=== PATIENT | female | born 1975 | race Caucasian/White ===

== ENCOUNTER → 2017-03-29 | Outpatient (REF) | payer OTHER | LOC: M WUC 19:09 | PROVIDERS: ATTEND Physician Assistant | DX: N76.4 Abscess of vulva (principal) ==

== ENCOUNTER 2018-07-19 12:41 | Outpatient (RCR) | payer OTHER ==
[2018-07-19] MEDS ORDERED: METO1TAB32 PO (12:55)
[2018-07-19] MEDS ORDERED: ELIQ5TAB PO (12:55)
[2018-07-19] MEDS ORDERED: DIGO0.259 PO (12:55)
[2018-07-19] MEDS ORDERED: ENTR1TAB PO (12:55)
[2018-07-19] MEDS ORDERED: METO1TAB33 PO (12:55)
[2018-07-19] MEDS ORDERED: TORS10TA3 PO (12:55)
[2018-07-19] MEDS ORDERED: SPIR-10 PO (12:55)
[2018-07-19] MEDS ORDERED: MAGN64TASA PO (12:55)
--- NOTE | 2018-07-19 15:25 | CARECAPL ---
Exercise Prescription Duration (Minutes) minutes total exercise a day. work intervals in minutes. rest intervals in minutes. Functional Capacity Goal Sustained Metabolic Equivalent of a task (MET) goal of for minutes. Progression (METS) Increase by: METS every: sessions Medications Scheduled Apixaban Base (Eliquis), 5 MG PO BID, (Reported) Digoxin (Digox), 250 MCG PO DAILY, (Reported) Magnesium Chloride (Mag64), 2 TAB PO BID, (Reported) Metoprolol Succinate (Metoprolol Succinate ER), 25 MG PO DAILY, (Reported) Metoprolol Succinate (Metoprolol Succinate ER), 100 MG PO DAILY, (Reported) Sacubitril/Valsartan (Entresto 24-26 mg), 1 TAB PO BID, (Reported) Spironolactone (Spironolactone), 25 MG PO DAILY, (Reported) Torsemide (Torsemide), 10 MG PO DAILY, (Reported) Target Goals Individual exercise Rx (1) BP 140/90 or 130/80 if DM or CKD (1) Aerobic active 30+min 5 days per week (1) Nutrition Date: Jul 19, 2018 Assessment: Initial Assessment Diabetes Diabetes: No Weight Management Weight (lbs): 228.2 Height (inches): 64 Waist Circumference (Inches): 50 BMI: 36.8 Special Diet: low salt, mediteranean diet, low-fat Alcohol: special Alcohol Amount: 1-2 Diet Access Tool: Rate your plate Score: 40 Intervention Direct Sales Professional Consult: Yes Nurse/patient discussion: Yes Diet Class: Yes Referral to weight mangement p: Yes Education Eating Healthy Target goal LDL-C<100 if triglycerides are >200 Non-HDL-C should be <130 (1) LDL-C<70 for high risk patients (4) HbA1c<7% (1) BMI<25 Waist cir<40in M/<35in F (1) Education Date: Jul 19, 2018 Assessment: Initial Assessment Knowledge Test Score: 8 Family Support: Yes Tobacco use: Yes Quit: <6 months Tobacco Use Date quit: Feb 27, 2018 Cigarettes smoked per day: 4 Intervention Referral to smoking cessation: Yes Individual education and couns: Yes Education class schedule given: Yes Attended education classes: Yes Education: tobacco triggers, CAD, Risk factors, med compliance, cardiac A&P, Angina S/S, Sexuality Target Goals Complete cessation of tobacco use (1). Psychosocial Date: Jul 19, 2018 Assessment: Initial Assessment Psych Test (Initial/Discharge) Tool Used: CESD Score: 10 Intervention Physician Consult: No Physician Referral: No Stress Management Class: Yes Uses Stress Management Skills: Yes Education Education: Coping Techniques, Relaxation Techniques Target Goal Assess presence or absence of depression using a valid screening tool (1). Maximize coping skills (2). Positive support system (2). Patient/Program Goal Preventative Medication: Yes Clopidogrel, Yes Beta blockade Fall Risk Assess: No Provider Assessment Session Number: 1 Provider Assessment: Proceed with rehab Hue Dhillon RN Jul 19, 2018 15:25
== END 2018-07-29 ==
LOC: M CR 12:41
PROVIDERS: ATTEND Internal Medicine Cardiovascular Disease
DX: I21.4 Non-ST elevation (NSTEMI) myocardial infarction (principal)

== ENCOUNTER 2018-08-09 14:20 | Outpatient (RCR) | payer OTHER ==
[~2018-08-09 14:20] MED LIST: DIGO0.259 PO; ELIQ5TAB PO; ENTR1TAB PO; MAGN64TASA PO; METO1TAB32 PO; METO1TAB33 PO; SPIR-10 PO; TORS10TA3 PO
--- NOTE | 2018-08-21 09:51 | CARECAPL ---
Assessment Account #s: Re-Assessment I General Diagnoses: NSTEMI, CHF Date of event: Jul 03, 2018 Physician: Yanick Licea Date Entered Program: Jul 19, 2018 Risk strat for cardiac event: Moderate Exercise Date: Aug 21, 2018 Assessment: Re-Assessment I Exercise Prescription Plan TO EDUCATE AND BUILD ENDURANCE THROUGH MONITORED EXERCISE Modalities initiated: Treadmill (METS=2.15/RPE=2), Arm Aerometer (METS=2.8/RPE3), Recumbent Bike (METS=3.5/RPE=3) Frequency: 3 Duration (Minutes) 30-60 minutes total exercise a day. 10-15 work intervals in minutes. 5 MIN PRN rest intervals in minutes. Functional Capacity Goal Sustained Metabolic Equivalent of a task (MET) goal of 4.5-5.0 for 15-20 minutes. Intensity: 3-Moderate Progression (METS) Increase by: 0.5 METS every: 5 sessions TOLERATED Angina with ex: No Target Heart Rate +35-40 BASED ON BETA DORIS THERAPY Resistance Training: Yes Weight (pounds): 1 Reps: 12-15 Hypertension: Yes Hypertension controlled with: Medication Resting 110/80 Peak Exercise BP 160/96 Medications Scheduled Apixaban Base (Eliquis), 5 MG PO BID, (Reported) Digoxin (Digox), 250 MCG PO DAILY, (Reported) Magnesium Chloride (Mag64), 2 TAB PO BID, (Reported) Metoprolol Succinate (Metoprolol Succinate ER), 25 MG PO DAILY, (Reported) Metoprolol Succinate (Metoprolol Succinate ER), 100 MG PO DAILY, (Reported) Sacubitril/Valsartan (Entresto 24-26 mg), 1 TAB PO BID, (Reported) Spironolactone (Spironolactone), 25 MG PO DAILY, (Reported) Torsemide (Torsemide), 10 MG PO DAILY, (Reported) Current BP 104/60 Med Change: No Intervention Resistance Training: Yes Education: Self pulse, Ex safety, S/S to report, Low NA diet, BP medication, RPE Scale, Equipment orientation, warm up/cool down, Understand BP, Physical A ctive Target Goals Individual exercise Rx (1) BP 140/90 or 130/80 if DM or CKD (1) Aerobic active 30+min 5 days per week (1) Nutrition Date: Aug 21, 2018 Assessment: Re-Assessment I Med Change: No Diabetes Diabetes: No Monitor Blood Sugar at home: No Medication Change: No Blood sugar in range: No Weight Management Weight (lbs): 228 Special Diet: low salt, mediteranean diet, low-fat Alcohol: special Alcohol Amount: 1-2 Current Weight (pounds): 228 Intervention Opal Miner Consult: No Nurse/patient discussion: Yes Diet Class: Yes Referral to Diabetes education: No Referral to lipid clinic: No Referral to weight mangement p: No Education Eating Healthy Target goal LDL-C<100 if triglycerides are >200 Non-HDL-C should be <130 (1) LDL-C<70 for high risk patients (4) HbA1c<7% (1) BMI<25 Waist cir<40in M/<35in F (1) Education Date: Aug 21, 2018 Assessment: Re-Assessment I Family Support: Yes Tobacco use: No (QUIT February) Quit: <6 months Tobacco Use Date quit: Feb 27, 2018 Smokeless tobacco: No Intervention Referral to smoking cessation: No Individual education and couns: No Tobacco Adjunct: No Education class schedule given: No Attended education classes: No Education: tobacco triggers, CAD, Risk factors, med compliance, cardiac A&P, Angina S/S, Sexuality Target Goals Complete cessation of tobacco use (1). Psychosocial Date: Aug 21, 2018 Assessment: Re-Assessment I Intervention Physician Consult: No Physician Referral: No Med Change: No Stress Management Class: No Uses Stress Management Skills: Yes Education Education: Coping Techniques, S/S depression, Relaxation Techniques Target Goal Assess presence or absence of depression using a valid screening tool (1). Maximize coping skills (2). Positive support system (2). Patient/Program Goal Preventative Medication: Yes Beta blockade Fall Risk Assess: Yes (NOT A FALL RISK) Provider Assessment Session Number: 3 Arnold Pineda RN Aug 21, 2018 09:51
== END 2018-08-29 ==
LOC: M CR 14:20
PROVIDERS: ATTEND Internal Medicine Cardiovascular Disease
DX: I21.4 Non-ST elevation (NSTEMI) myocardial infarction (principal)

== ENCOUNTER 2018-09-12 11:10 | Outpatient (RCR) | payer OTHER ==
--- NOTE | 2018-09-16 08:46 | CARECAPL ---
Assessment Account #s: Re-Assessment II General Diagnoses: NSTEMI, CHF Date of event: Jul 03, 2018 Physician: Yanick Licea strat for cardiac event: Moderate Exercise Date: Sep 12, 2018 Assessment: Re-Assessment II Exercise Prescription Modalities initiated: Treadmill (mets 2.76 RPE 2), Nustep (mets 2.8 RPE 4), Dumbells (2lbs RPE 3), Recumbent Bike (mets 3.6 RPE 3) Frequency: 2 Duration (Minutes) minutes total exercise a day. work intervals in minutes. rest intervals in minutes. Functional Capacity Goal Sustained Metabolic Equivalent of a task (MET) goal of for minutes. Intensity: 3-Moderate Progression (METS) Increase by: METS every: sessions Weight (pounds): 2 Reps: 8-12 Medications Scheduled Apixaban Base (Eliquis), 5 MG PO BID, (Reported) Digoxin (Digox), 250 MCG PO DAILY, (Reported) Magnesium Chloride (Mag64), 2 TAB PO BID, (Reported) Metoprolol Succinate (Metoprolol Succinate ER), 25 MG PO DAILY, (Reported) Metoprolol Succinate (Metoprolol Succinate ER), 100 MG PO DAILY, (Reported) Sacubitril/Valsartan (Entresto 24-26 mg), 1 TAB PO BID, (Reported) Spironolactone (Spironolactone), 25 MG PO DAILY, (Reported) Torsemide (Torsemide), 10 MG PO DAILY, (Reported) Current BP 110/78 Med Change: No Target Goals Individual exercise Rx (1) BP 140/90 or 130/80 if DM or CKD (1) Aerobic active 30+min 5 days per week (1) Nutrition Date: Sep 16, 2018 Assessment: Re-Assessment II Med Change: No Medication Change: No Blood sugar in range: No Current Weight (pounds): 227 Intervention Nurse/patient discussion: Yes Target goal LDL-C<100 if triglycerides are >200 Non-HDL-C should be <130 (1) LDL-C<70 for high risk patients (4) HbA1c<7% (1) BMI<25 Waist cir<40in M/<35in F (1) Education Date: Sep 16, 2018 Assessment: Re-Assessment II Target Goals Complete cessation of tobacco use (1). Psychosocial Date: Sep 16, 2018 Assessment: Re-Assessment II Med Change: No Stress Management Class: Yes Uses Stress Management Skills: Yes Education Education: Coping Techniques, S/S depression, Relaxation Techniques Target Goal Assess presence or absence of depression using a valid screening tool (1). Maximize coping skills (2). Positive support system (2). Patient/Program Goal Preventative Medication: Yes Beta blockade, Yes Other (entresto) Fall Risk Assess: No Provider Assessment Session Number: 5 Provider Assessment: Proceed with rehab Swetha Johnson RN Sep 16, 2018 08:46
--- NOTE | 2018-09-18 13:21 | CARECAPL ---
General Diagnoses: NSTEMI, CHF Date of event: Jul 03, 2018 Physician: Yanick Licea Date Entered Program: Sep 12, 2018 Risk strat for cardiac event: High Exercise Prescription Duration (Minutes) minutes total exercise a day. work intervals in minutes. rest intervals in minutes. Functional Capacity Goal Sustained Metabolic Equivalent of a task (MET) goal of for minutes. Progression (METS) Increase by: METS every: sessions Medications Scheduled Apixaban Base (Eliquis), 5 MG PO BID, (Reported) Digoxin (Digox), 250 MCG PO DAILY, (Reported) Magnesium Chloride (Mag64), 2 TAB PO BID, (Reported) Metoprolol Succinate (Metoprolol Succinate ER), 25 MG PO DAILY, (Reported) Metoprolol Succinate (Metoprolol Succinate ER), 100 MG PO DAILY, (Reported) Sacubitril/Valsartan (Entresto 24-26 mg), 1 TAB PO BID, (Reported) Spironolactone (Spironolactone), 25 MG PO DAILY, (Reported) Torsemide (Torsemide), 10 MG PO DAILY, (Reported) Education Goals Met: No (patient states she can't finish cardiac rehab completed only 5 sessions) Target Goals Individual exercise Rx (1) BP 140/90 or 130/80 if DM or CKD (1) Aerobic active 30+min 5 days per week (1) Nutrition Date: Sep 18, 2018 Assessment: Followup/Discharge (patient not completing cardiac rehab only 5 sessions.) Target goal LDL-C<100 if triglycerides are >200 Non-HDL-C should be <130 (1) LDL-C<70 for high risk patients (4) HbA1c<7% (1) BMI<25 Waist cir<40in M/<35in F (1) Education Date: Sep 18, 2018 Education Goals Met: No (patient not completing cardiac rehab) Target Goals Complete cessation of tobacco use (1). Psychosocial Date: Sep 18, 2018 Assessment: Followup/Discharge Education Goals Met: No (patient not completing cardiac rehab) Target Goal Assess presence or absence of depression using a valid screening tool (1). Maximize coping skills (2). Positive support system (2). Provider Assessment Session Number: 5 Swetha Johnson RN Sep 18, 2018 13:21
== END 2018-09-26 ==
LOC: M CR 11:10
PROVIDERS: ATTEND Internal Medicine Cardiovascular Disease
DX: I21.4 Non-ST elevation (NSTEMI) myocardial infarction (principal)

== ENCOUNTER → 2018-10-11 | Outpatient (REF) | payer OTHER | LOC: M SFHCWAGY 09:39 | PROVIDERS: ATTEND Family Medicine | DX: Z12.4 Encounter for screening for malignant neoplasm of cervix (principal) ==

== ENCOUNTER 2019-01-03 08:56 | Outpatient (RCR) | payer OTHER ==
--- NOTE | 2019-01-03 11:10 | CARECAPL ---
Assessment Account #s: Initial Assessment General Diagnoses: NSTEMI Date of event: Jun 19, 2018 Physician: Yanick Licea Date Entered Program: Jan 03, 2019 Risk strat for cardiac event: Moderate Exercise Date: Jan 03, 2019 Assessment: Initial Assessment Exercise Prescription Plan TO EDUCATE AND BUILD ENDURANCE THROUGH MONITORED EXERCISE Modalities initiated: Treadmill (WILL ADD), Cardio-Strider (WILL ADD), Nustep (WILL ADD), Arm Aerometer (WILL ADD), Dumbells (WILL ADD), Recumbent Bike (WILL ADD) Frequency: 3 Duration (Minutes) 30-60 minutes total exercise a day. 10-12 work intervals in minutes. 5 MIN PRN rest intervals in minutes. Functional Capacity Goal Sustained Metabolic Equivalent of a task (MET) goal of 2.0-3.0 for 15-20 minutes. Intensity: 3-Moderate Progression (METS) Increase by: 0.5 METS every: 5 sessions TOLERATED Angina with ex: No Target Heart Rate RATE +35-40 Resistance Training: Yes Weight (pounds): 2 Reps: 12-15 Hypertension: Yes Hypertension controlled with: Medication Resting 148/72 Medications Scheduled Apixaban (Eliquis), 5 MG PO BID, (Reported) Magnesium Chloride (Mag64), 2 TAB PO BID, (Reported) Metoprolol Succinate (Metoprolol Succinate), 25 MG PO DAILY, (Reported) Sacubitril/Valsartan (Entresto 24 mg-26 mg Tablet), 1 TAB PO BID, (Reported) Spironolactone (Spironolactone), 25 MG PO DAILY, (Reported) Torsemide (Torsemide), 10 MG PO DAILY, (Reported) Discontinued Medications Digoxin (Digox), 250 MCG PO DAILY, (Reported) Discontinued Reason: PCP discontinued med Metoprolol Succinate (Metoprolol Succinate), 100 MG PO DAILY, (Reported) Discontinued Reason: PCP discontinued med Current BP 141/68 Med Change: No Intervention Resistance Training: Yes Education: Self pulse, Ex safety, S/S to report, Low NA diet, BP medication, RPE Scale, Equipment orientation, warm up/cool down, Understand BP, Physical Active Target Goals Individual exercise Rx (1) BP 140/90 or 130/80 if DM or CKD (1) Aerobic active 30+min 5 days per week (1) Nutrition Date: Jan 03, 2019 Assessment: Initial Assessment Lipid- med/supplement NONE Med Change: No Diabetes Diabetes: No Monitor Blood Sugar at home: No Medication Change: No Blood sugar in range: No Weight Management Weight (lbs): 231 Height (inches): 70 Waist Circumference (Inches): 48 BMI: 33.1 Weight goal: 130 Special Diet: low salt, low-fat Diet Access Tool: Rate your plate Score: 48 Current Weight (pounds): 231 Weight Goal 130 Intervention Nurse/patient discussion: Yes Dietary Goals TO MAKE HEART HEALTHY CHOICES Diet Class: Yes Referral to Diabetes education: No Referral to lipid clinic: No Referral to weight mangement p: No Education Eating Healthy Target goal LDL-C<100 if triglycerides are >200 Non-HDL-C should be <130 (1) LDL-C<70 for high risk patients (4) HbA1c<7% (1) BMI<25 Waist cir<40in M/<35in F (1) Education Date: Jan 03, 2019 Assessment: Initial Assessment Learning Barriers: ready Knowledge Test Score: 10 Family Support: Yes Tobacco use: No Quit: >6 months Tobacco Use Date quit: Feb 27, 2018 Smokeless tobacco: No Intervention Referral to smoking cessation: No Individual education and couns: No Tobacco Adjunct: No Education class schedule given: No Attended education classes: No Education: tobacco triggers, CAD, Risk factors, med compliance, cardiac A&P, Angina S/S, Sexuality Target Goals Complete cessation of tobacco use (1). Psychosocial Date: Jan 03, 2019 Assessment: Initial Assessment Psych Test (Initial/Discharge) Tool Used: CESD Score: 2 Intervention Physician Consult: No Physician Referral: No Med Change: No Stress Management Class: No Uses Stress Management Skills: Yes Education Education: Coping Techniques, S/S depression, Relaxation Techniques Target Goal Assess presence or absence of depression using a valid screening tool (1). Maximize coping skills (2). Positive support system (2). Patient/Program Goal Preventative Medication: Yes Beta blockade Fall Risk Assess: Yes (NOT A FALL RISK) Provider Assessment Session Number: 1 Provider Assessment: Proceed with rehab Arnold Pineda RN Jan 03, 2019 11:10
== END 2019-01-26 ==
LOC: M CR 08:56
PROVIDERS: ATTEND Internal Medicine Cardiovascular Disease
DX: I21.4 Non-ST elevation (NSTEMI) myocardial infarction (principal)

== ENCOUNTER → 2021-09-05 | Outpatient (REF) | payer OTHER ==
[2021-09-05 16:37] LABS: HEMOGLOBIN 13.2 g/dl (12.0-15.5); MEAN CORPUSCULAR HEMOGLOBIN 26.9 pg (27.0-33.0); MEAN CORPUSCULAR HGB CONC 31.4 g/dl (32.0-36.5); MEAN CORPUSCULAR VOLUME 85.7 fl (80.0-96.0); PLATELET COUNT, AUTOMATED 304 10^3/uL (150-450); WHITE BLOOD COUNT 7.1 10^3/uL (4.0-10.0)
[2021-09-05 17:02] LABS: ERYTHROCYTE SEDIMENTATION RATE 19 mm/hr (0-20)
[2021-09-05 17:19] LABS: ALBUMIN 3.6 GM/DL (3.2-5.2); ALT/SGPT 23 U/L (12-78); BILIRUBIN,TOTAL 0.3 MG/DL (0.2-1.0); BLOOD UREA NITROGEN 13 MG/DL (7-18); C REACTIVE PROTEIN QUANTITATIV 1.05 MG/DL (0.00-0.30); CALCIUM LEVEL 9.6 MG/DL (8.5-10.1); CARBON DIOXIDE LEVEL 28 MEQ/L (21-32); CHLORIDE LEVEL 106 MEQ/L (98-107); CREATININE FOR GFR 0.91 MG/DL (0.55-1.30); FREE T4 1.12 NG/DL (0.76-1.46); GLOMERULAR FILTRATION RATE > 60.0 (>58); GLUCOSE, FASTING 99 MG/DL (70-100); POTASSIUM SERUM 5.2 MEQ/L (3.5-5.1); RHEUMATOID FACTOR QUANT < 10.0 IU/ML (<15.0); SODIUM LEVEL 140 MEQ/L (136-145); TOTAL 25(OH) VITAMIN D 33.2 NG/ML (30.0-100.0); TOTAL PROTEIN 7.5 GM/DL (6.4-8.2)
[2021-09-05 19:05] LABS: HEMOGLOBIN A1c 5.5 %
[2021-09-07 21:07] LABS: Lyme Disease IgG/IgM Antibodie <0.91 ISR (0.00-0.90); Lyme Disease IgM Ab Quantitati <0.80 index (0.00-0.79)
== END ==
LOC: M SFHCCLAY 11:00
PROVIDERS: ATTEND Nurse Practitioner Family
DX: L65.9 Nonscarring hair loss, unspecified (principal); I10 Essential (primary) hypertension; Z13.1 Encounter for screening for diabetes mellitus

== ENCOUNTER → 2022-01-12 | Outpatient (REF) | payer OTHER | LOC: M SFHCCLAY 11:39 | PROVIDERS: ATTEND Physician Assistant | DX: J02.9 Acute pharyngitis, unspecified (principal) ==

== ENCOUNTER → 2022-07-07 | Outpatient (CLI) | payer OTHER | LOC: M RAD 09:33 | PROVIDERS: ATTEND Physician Assistant | DX: M25.571 Pain in right ankle and joints of right foot (principal) ==

== ENCOUNTER → 2024-01-24 | Outpatient (REF) | payer OTHER ==
[2024-01-24 17:36] LABS: ALBUMIN 3.5 G/DL (3.2-5.2); ALKALINE PHOSPHATASE 70 U/L (46-116); ALT/SGPT 25 U/L (7.0-40); AST/SGOT 10 U/L (<34); BILIRUBIN,TOTAL 0.4 MG/DL (0.3-1.2); BLOOD UREA NITROGEN 14 MG/DL (9-23); CALCIUM LEVEL 9.2 MG/DL (8.5-10.1); CARBON DIOXIDE LEVEL 23 MMOL/L (20-31); CHLORIDE LEVEL 109 MMOL/L (98-107); CHOLESTEROL LEVEL 182 MG/DL (<200); CHOLESTEROL RISK RATIO 3.92 (<5); CREATININE FOR GFR 0.87 MG/DL (0.55-1.30); GLOMERULAR FILTRATION RATE > 60.0 (>58); GLUCOSE, FASTING 106 MG/DL (60-100); HDL CHOLESTEROL 46.4 MG/DL (>40); NON-HDL-C 135.6 MG/DL; POTASSIUM SERUM 4.4 MMOL/L (3.5-5.1); SODIUM LEVEL 137 MMOL/L (136-145); TRIGLYCERIDES LEVEL 178 MG/DL (<150)
[2024-01-24 17:55] LABS: HEMOGLOBIN A1c 5.2 % (4.0-6.0)
== END ==
LOC: M SFHCCLAY 09:37
PROVIDERS: ATTEND Nurse Practitioner Family
DX: I48.91 Unspecified atrial fibrillation (principal); E66.9 Obesity, unspecified; L40.9 Psoriasis, unspecified; I10 Essential (primary) hypertension; K21.9 Gastro-esophageal reflux disease without esophagitis

== ENCOUNTER → 2024-03-25 | Outpatient (REF) | payer OTHER ==
[2024-03-27 15:07] LABS: QuantiFERON-TB Gold Plus NEGATIVE (NEGATIVE)
== END ==
LOC: M LABDRWAD 12:39
PROVIDERS: ATTEND Physician Assistant
DX: L40.0 Psoriasis vulgaris (principal)

== ENCOUNTER → 2024-05-05 | Outpatient (REF) | payer OTHER | LOC: M LAB REF 12:35 | PROVIDERS: ATTEND Student in an Organized Health Care Education/Training Program | DX: J06.9 Acute upper respiratory infection, unspecified (principal) ==

== ENCOUNTER → 2024-05-20 | Outpatient (REF) | payer OTHER | LOC: M SFHCDERM 17:54 | PROVIDERS: ATTEND Physician Assistant | DX: D48.9 Neoplasm of uncertain behavior, unspecified (principal) ==

== ENCOUNTER → 2024-09-17 | Outpatient (REF) | payer OTHER | LOC: M SFHCDERM 12:40 | PROVIDERS: ATTEND Physician Assistant | DX: N89.8 Other specified noninflammatory disorders of vagina (principal) ==

== ENCOUNTER → 2025-03-25 | Outpatient (REF) | payer OTHER | LOC: M SFHCDERM 09:58 | PROVIDERS: ATTEND Physician Assistant | DX: D48.9 Neoplasm of uncertain behavior, unspecified (principal) ==

== ENCOUNTER → 2025-04-22 | Outpatient (REF) | payer OTHER | LOC: M SFHCCLAY 09:57 | PROVIDERS: ATTEND Nurse Practitioner Family | DX: Z00.00 Encounter for general adult medical examination without abnormal findings (principal); I48.91 Unspecified atrial fibrillation; I10 Essential (primary) hypertension; K21.9 Gastro-esophageal reflux disease without esophagitis; N94.9 Unspecified condition associated with female genital organs and menstrual cycle ==